=== PATIENT | female | born 1995 | race Two or more races ===

== ENCOUNTER 2017-03-07 08:13 | Emergency (ER) | payer SELFPAY ==
[2017-03-07 08:19] VITALS: BP 128/70
--- NOTE | 2017-03-07 08:34 | ER Document Report ---
HPI - HPI Patient complains to provider of: right side neck pain for 2 days Onset: Other - 2 days ago Pain Level: 1 Context: 21 yo female woke up with stiff, sore right sided neck pain. No radiculopathy, no known injury. Associated Symptoms: None Exacerbated by: Movement Relieved by: Denies Similar symptoms previously: No Recently seen / treated by doctor: No - ROS ROS below otherwise negative: Yes Systems Reviewed and Negative: Yes All other systems reviewed and negative - REPRODUCTIVE Reproductive: DENIES: : - DERM Skin Color: Normal Past Medical History - General Information source: Patient - Social History Smoking Status: Never Smoker Frequency of alcohol use: None Lives with: Parents Family History: Reviewed & Not Pertinent Patient has suicidal ideation: No Patient has homicidal ideation: No Renal/ Medical History: Denies: Hx Peritoneal Dialysis GI Medical History: Reports: Hx Gastroesophageal Reflux Disease Past Surgical History: Reports: Hx Bowel Surgery - polyp removed - Immunizations Hx Diphtheria, Pertussis, Tetanus Vaccination: Yes Vertical Provider Document - CONSTITUTIONAL Agree With Documented VS: Yes Exam Limitations: No Limitations - INFECTION CONTROL TRAVEL OUTSIDE OF THE [place] IN LAST 30 DAYS: No - HEENT HEENT: Normocephalic - NECK Neck: Supple - tender right trapeizus muscle. negative: Lymphadenopathy-Left, Lymphadenopathy-Right - RESPIRATORY Respiratory: Breath Sounds Normal, No Respiratory Distress O2 Sat by Pulse Oximetry: 98 - CARDIOVASCULAR Cardiovascular: Regular Rate, Regular Rhythm - MUSCULOSKELETAL/EXTREMETIES Notes: see above - NEURO Level of Consciousness: Awake, Alert Motor/Sensory: No Motor Deficit, No Sensory Deficit - DERM Integumentary: Warm, Dry, No Rash Course - Vital Signs Vital signs: Temp Pulse Resp BP Pulse Ox 98.1 F 73 18 128/70 H 98 03/07/17 08:16 03/07/17 08:16 03/07/17 08:16 03/07/17 08:16 03/07/17 08:16 Discharge - Discharge Clinical Impression: Trapezius muscle spasm Condition: Good Disposition: HOME, SELF-CARE Instructions: Acetaminophen, Anti-Inflammatory Medication ([facility]), Warm Packs ( [facility]), Muscle Relaxers ([facility]), Muscle Strain ([facility]), Torticollis ([facility]) Additional Instructions: warm compress range of motion extercises as dicussed to er if worse Please complete the patient satisfaction survey if you get one, and return it.. If you do not receive a survey, then you can go to the [facility] website, [email or web address] and place your comments about your very good care. Thank you very much. It was a pleasure being your medical provider today. Prescriptions: Ibuprofen [Motrin 800 mg Tablet] 800 mg PO Q8HP PRN #30 tablet PRN Reason: Cyclobenzaprine HCl [Flexeril 10 Mg Tablet] 10 mg PO TIDP PRN #20 tablet PRN Reason: Forms: Return to Work
[2017-03-07] MEDS ORDERED: IBUPROFEN 800 MG TABLET PO ONE (09:38)
[2017-03-07] MEDS ORDERED: ACETAMINOPHEN 325 MG TABLET PO ONE (09:38)
[2017-03-07] MEDS ORDERED: CYCLOBENZAPRINE HCL 10 MG TABLET PO ONE (10:09)
== END 2017-03-07 10:20 | disposition home or self-care (01) ==
LOC: ER 08:13
DX: M62.830 Muscle spasm of back (principal); M54.2 Cervicalgia
CPT/HCPCS: 99283

== ENCOUNTER 2018-01-29 01:08 | Emergency (ER) | payer SELFPAY ==
[2018-01-29 01:14] VITALS: BP 149/88
[2018-01-29 02:40] LABS: APPEARANCE,URINE SLIGHTLY-CLOUDY; BILIRUBIN,URINE NEGATIVE (NEGATIVE); COLOR,URINE YELLOW; GLUCOSE, URINE NEGATIVE (NEGATIVE); KETONES,URINE NEGATIVE (NEGATIVE); LEUKOCYTE ESTERASE,URINE NEGATIVE (NEGATIVE); NITRITE,URINE NEGATIVE (NEGATIVE); PROTEIN,URINE NEGATIVE (NEGATIVE); URINE SPECIFIC GRAVITY 1.017
[2018-01-29 04:36] LABS: T.VAGINALIS (WET MOUNT) NO TRICHOMONAS SEEN; YEAST (WET MOUNT) BUDDING YEAST SEEN
[2018-01-29 04:37] LABS: BACTERIA (WET MOUNT) 4+ BACTERIA SEEN; EPITHELIALS (WET MOUNT) 4+ EPITHELIALS SEEN; RBCS (WET MOUNT) RARE RBCS SEEN; WBCS (WET MOUNT) FEW WBCS SEEN
--- NOTE | 2018-01-29 05:14 | ER Document Report ---
ED General - General Chief Complaint: Vaginal Pain Stated Complaint: PAINFUL URINATION Time Seen by Provider: 01/29/18 01:56 Mode of Arrival: Ambulatory Information source: Patient Notes: 22-year-old female presents with complaints of vaginal discharge bleeding . Pt notes that she had [facility] with similar complaints was tested for chlamydia, gonrrhea, bv, trich syphilis and hiv. she was positive for yeast and bv and was treated with flagyl and diflucan. pt ntoes that now she is having further itching. TRAVEL OUTSIDE OF THE [place] IN LAST 30 DAYS: No - HPI Onset: Last week Onset/Duration: Persistent Quality of pain: Sharp Severity: Mild Pain Level: 1 Associated symptoms: Other Exacerbated by: Denies Relieved by: Denies Similar symptoms previously: Yes Recently seen / treated by doctor: Yes - Related Data Allergies/Adverse Reactions: No Known Drug Allergies Allergy (Verified 03/07/17 08:19) Past Medical History - Social History Smoking Status: Never Smoker Cigarette use (# per day): No Chew tobacco use (# tins/day): No Smoking Education Provided: No Frequency of alcohol use: None Drug Abuse: None Family History: Reviewed & Not Pertinent Patient has suicidal ideation: No Patient has homicidal ideation: No Renal/ Medical History: Denies: Hx Peritoneal Dialysis GI Medical History: Reports: Hx Gastroesophageal Reflux Disease Past Surgical History: Reports: Hx Bowel Surgery - polyp removed - Immunizations Hx Diphtheria, Pertussis, Tetanus Vaccination: Yes Review of Systems - Review of Systems Notes: REVIEW OF SYSTEMS: CONSTITUTIONAL : Denies fever, chills, or sweats. Denies recent illness. EENT: Denies eye, ear, throat, or mouth pain or symptoms. Denies nasal or sinus congestion or discharge. Denies throat, tongue, or mouth swelling or difficulty swallowing. CARDIOVASCULAR: Denies chest pain. Denies palpitations or racing or irregular heart beat. Denies ankle edema. RESPIRATORY: Denies cough, cold, or chest congestion. Denies shortness of breath, difficulty breathing, or wheezing. GASTROINTESTINAL: Denies abdominal pain or distention. Denies nausea, vomiting , or diarrhea. Denies blood in vomitus, stools, or per rectum. Denies black, tarry stools. Denies constipation. GENITOURINARY: Admits to burning on urination FEMALE GENITOURINARY: Admits to vaginal itching and discharge. MUSCULOSKELETAL: Denies back or neck pain or stiffness. Denies joint pain or swelling. SKIN: Denies rash, lesions or sores. HEMATOLOGIC : Denies easy bruising or bleeding. LYMPHATIC: Denies swollen, enlarged glands. NEUROLOGICAL: Denies confusion or altered mental status. Denies passing out or loss of consciousness. Denies dizziness or lightheadedness. Denies headache. Denies weakness or paralysis or loss of use of either side. Denies problems with gait or speech. Denies sensory loss, numbness, or tingling. Denies seizures. PSYCHIATRIC: Denies anxiety or stress. Denies depression, suicidal ideation, or homicidal ideation. ALL OTHER SYSTEMS REVIEWED AND NEGATIVE. PHYSICAL EXAMINATION: GENERAL: Well-appearing, well-nourished and in no acute distress. HEAD: Atraumatic, normocephalic. EYES: Pupils equal round and reactive to light, extraocular movements intact, conjunctiva are normal. ENT: Nares patent, oropharynx clear without exudates. Moist mucous membranes. NECK: Normal range of motion, supple without lymphadenopathy LUNGS: Breath sounds clear to auscultation bilaterally and equal. No wheezes rales or rhonchi. HEART: Regular rate and rhythm without murmurs ABDOMEN: Soft, nontender, nondistended abdomen. No guarding, no rebound. No masses appreciated. Female : Pelvic examination performed with nurse in room notes thick cottage cheese discharge internal and external examination no cervical motion tenderness there is some dried blood at the cervical loss Musculoskeletal: Normal range of motion, no pitting or edema. No cyanosis. NEUROLOGICAL: Cranial nerves grossly intact. Normal speech, normal gait. Normal sensory, motor exams PSYCH: Normal mood, normal affect. SKIN: Warm, Dry, normal turgor, no rashes or lesions noted. Dictation was performed using [email or web address] voice recognition software Physical Exam - Vital signs Vitals: Temp Pulse Resp BP Pulse Ox 98.7 F 93 20 149/88 H 97 01/29/18 01:13 01/29/18 01:13 01/29/18 01:13 01/29/18 01:13 01/29/18 01:13 Course - Re-evaluation Re-evalutation: 01/29/18 06:13 Patient appears to have bacterial vaginosis and yeast infection still, since she is being treated with Flagyl already I will not change the course however have increased the dosage of her Diflucan. She will be given follow-up with OB/ [facility] AL[facility] REPAIRER for further evaluation and care After performing a Medical Screening Examination, I estimate there is LOW risk for ACUTE APPENDICITIS, BOWEL OBSTRUCTION, ACUTE CHOLECYSTITIS, PERFORATED DIVERTICULITIS, INCARCERATED HERNIA, PANCREATITIS, PELVIC INFLAMMATORY DISEASE, PERFORATED ULCER, ECTOPIC , or TUBO-OVARIAN ABSCESS, thus I consider the discharge disposition reasonable. Also, there is no evidence or peritonitis , sepsis, or toxicity. I have reevaluated this patient multiple times and no significant life threatening changes are noted. The patient and I have discussed the diagnosis and risks, and we agree with discharging home with close follow-up with the understanding that symptoms and presentations can change. We also discussed returning to the Emergency Department immediately if new or worsening symptoms occur. We have discussed the symptoms which are most concerning (e.g., bloody stool, fever, changing or worsening pain, vomiting) that necessitate immediate return. - Vital Signs Vital signs: Temp Pulse Resp BP Pulse Ox 98.7 F 93 20 149/88 H 97 01/29/18 01:13 01/29/18 01:13 01/29/18 01:13 01/29/18 01:13 01/29/18 01:13 - Laboratory Laboratory results interpreted by me: 01/29/18 02:15 Urine Urobilinogen 2.0 H Discharge - Discharge Clinical Impression: Vaginal yeast infection, Dysuria Condition: Stable Disposition: HOME, SELF-CARE Instructions: Vaginal Yeast Infection ([facility]) Prescriptions: Fluconazole [Diflucan] 150 mg PO DAILY #7 tablet Forms: Return to Work Referrals: [facility] [Provider Group] - Follow up as needed
[2018-01-29 05:59] LABS: CHLAM PCR NOT DETECTED (NOT DETECT); GON PCR NOT DETECTED (NOT DETECT)
== END 2018-01-29 05:21 | disposition home or self-care (01) ==
LOC: ER 01:08
DX: B37.3 Candidiasis of vulva and vagina (principal); R30.0 Dysuria
CPT/HCPCS: 81001; 81025; 87210; 87491; 87591; 99283

== ENCOUNTER 2018-04-04 02:48 | Emergency (ER) | payer SELFPAY ==
[2018-04-04] MEDS ORDERED: TETRACAINE HCL 0.5% OPH SOLN 2 ML OD ONE (03:56)
--- NOTE | 2018-04-04 03:58 | ER Document Report ---
ED General - General Chief Complaint: Eye Pain Stated Complaint: EYE INJURY Time Seen by Provider: 04/04/18 03:44 Notes: Patient is a 22-year-old female presents with complaint of redness and pain to the eye. She thinks actually scratched her eye when rubbing it. Since then has become more red and more painful and she has noticed little bit of yellowish drainage from the eye. Slight blurred vision. No other complaints or injuries. She does not wear contacts. She only wears glasses. TRAVEL OUTSIDE OF THE [place] IN LAST 30 DAYS: No - Related Data Allergies/Adverse Reactions: No Known Drug Allergies Allergy (Verified 03/07/17 08:19) Past Medical History - Social History Smoking Status: Unknown if Ever Smoked Frequency of alcohol use: None Drug Abuse: None Family History: Reviewed & Not Pertinent Patient has suicidal ideation: No Patient has homicidal ideation: No Renal/ Medical History: Denies: Hx Peritoneal Dialysis GI Medical History: Reports: Hx Gastroesophageal Reflux Disease Past Surgical History: Reports: Hx Bowel Surgery - polyp removed - Immunizations Hx Diphtheria, Pertussis, Tetanus Vaccination: Yes Review of Systems - Review of Systems Notes: My Normal Review Basic REVIEW OF SYSTEMS: CONSTITUTIONAL : Denies fever, chills, or sweats. Denies recent illness. EENT: Denies ear, throat, or mouth pain or symptoms. Denies nasal or sinus congestion. Left eye pain. SKIN: Denies rash or skin lesions. NEUROLOGICAL: Denies altered mental status or loss of consciousness. Denies headache. ALL OTHER SYSTEMS REVIEWED AND NEGATIVE. Physical Exam - Vital signs Vitals: Temp Pulse Resp BP Pulse Ox 98.1 F 94 16 149/93 H 99 04/04/18 02:52 04/04/18 02:52 04/04/18 02:52 04/04/18 02:52 04/04/18 02:52 - Notes Notes: General Appearance: Well nourished, alert, cooperative, no acute distress, no obvious discomfort. Well-appearing Vitals: reviewed, See vital signs table. Head: no swelling or tenderness to the head Eyes: PERRL, EOMI, right conjunctive is clear. Left conjunctiva has some erythema and irritation. Eyes watery. Patient has a small corneal abrasion at the 5 o'clock position forcing staining. This is over the conjunctiva. No ulceration. No New sign. Mouth: No decreasd moisture Throat: No tonsillar inflammation, No airway obstruction, No lymphadenopathy Neuro: speech clear, oriented x 3, normal affect, responds appropriately to questions. Course - Re-evaluation Re-evalutation: 04/04/18 07:07 Patient appears to have a small corneal abrasion she appears to have some associated conjunctivitis. She does not have significant swelling to the eye. She does not have a hypopyon. She has good extraocular motion without pain. Will place her on besifloxacin eyedrops. Patient to up with eye doctor on Saturday. She is to return to ER if she has worsening redness, swelling of her eye, or she feels that is worse in any way. Patient agrees with plan will be discharged home. Dictation of this chart was performed using voice recognition software; therefore, there may be some unintended grammatical errors. - Vital Signs Vital signs: Temp Pulse Resp BP Pulse Ox 98.6 F 83 16 138/82 H 98 04/04/18 04:28 04/04/18 04:28 04/04/18 04:28 04/04/18 04:28 04/04/18 04:28 Discharge - Discharge Clinical Impression: Corneal abrasion Qualifiers: Encounter type: initial encounter Laterality: left Qualified Code(s): S05.02XA - Injury of conjunctiva and corneal abrasion without foreign body, left eye, initial encounter Disposition: HOME, SELF-CARE Additional Instructions: Please try not to rub or touch your eye. You can tape a small piece of gauze over your closed eyelid for when you sleep at night so you do not accidentally rub your eye at night. We have given you an antibiotic eyedrop called Besifloxacin. Please apply 1 drop in your left eye 3 times a day for the next 5 -7 days. Please follow-up with drag out worker, Dr. Newell, on Saturday. Return to ER if you have worsening redness, changes in your vision, or increasing pain in your eye. Forms: Return to Work Referrals: ASH NEWELL MD [ACTIVE STAFF] - 04/07/18
[2018-04-04] MEDS ORDERED: BESIFLOXACIN HCL 0.6% OPH SUSP 5 ML BOTTLE OS ONE (04:07)
[2018-04-04 04:29] VITALS: BP 138/82
== END 2018-04-04 04:29 | disposition home or self-care (01) ==
LOC: ER 02:48
DX: S05.02XA Injury of conjunctiva and corneal abrasion without foreign body, left eye, initial encounter (principal)
CPT/HCPCS: 99283

== ENCOUNTER 2019-02-12 15:36 | Emergency (ER) | payer OTHER, BC ==
[2019-02-12] MEDS ORDERED: IBUPROFEN 600 MG TABLET PO ONE (18:43)
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
[2019-02-12 20:01] VITALS: BP 124/79
== END 2019-02-12 20:00 | disposition home or self-care (01) ==
LOC: ER 15:36
DX: S40.022A Contusion of left upper arm, initial encounter (principal); M25.512 Pain in left shoulder; M79.602 Pain in left arm; M54.2 Cervicalgia; V87.7XXA Person injured in collision between other specified motor vehicles (traffic), initial encounter
CPT/HCPCS: 99283

== ENCOUNTER → 2020-01-05 | Outpatient (CLI) | payer BC ==
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
== END ==
LOC: RAD 10:40
PROVIDERS: ATTEND Ophthalmology
DX: H53.8 Other visual disturbances (principal); H47.11 Papilledema associated with increased intracranial pressure; R51 Headache
CPT/HCPCS: 70553; A9576

== ENCOUNTER 2020-01-07 20:15 | Emergency (ER) | payer BC ==
[2020-01-07] MEDS ORDERED: DIPHENHYDRAMINE HCL 50 MG/ML VIAL IV ONE ×2 (20:53→23:20)
[2020-01-07] MEDS ORDERED: KETOROLAC TROMETHAMINE INJ/PF 30 MG/1 ML SDV IV ONE (20:53)
[2020-01-07] MEDS ORDERED: METOCLOPRAMIDE HCL INJ/PF 10 MG/2 ML SDV IV ONE (20:53)
[2020-01-07] MEDS ORDERED: NORMAL SALINE 1000 ML 1,000 ML IV ONE (20:53)
--- NOTE | 2020-01-07 20:55 | ER Document Report ---
ED Medical Screen (RME) - General Stated Complaint: HEADACHE Primary Care Provider: ISACC PRASAD DO [Primary Care Provider] - Follow up as needed Notes: Patient is a 24-year-old female with a recent diagnosis of idiopathic intracranial hypertension/pseudotumor cerebri who had a lumbar puncture yesterday with 20 cc of spinal fluid drained with an elevated opening pressure who was started on Diamox yesterday who presents with complaint of severe headache. She states she awoke this morning at 10 AM and had a very severe headache. She states that the frontal area and occipital areas of the head. She states she is taken multiple [id number] medications including 3 g of Tylenol a day without any significant improvement. She states is associated with photophobia. Denies any nausea or vomiting. Also admits to some soreness in the back of the neck as well as at the site of lumbar puncture. This was done at [facility]. Denies a history of headaches. Denies any changes with positioning. I have treated and performed a rapid initial assessment of this patient. A comprehensive ED assessment and evaluation of the patient, analysis of test results and completion of medical decision making process will be conducted by additional ED providers. PHYSICAL EXAMINATION: GENERAL: Well-appearing, well-nourished and in no acute distress. A&Ox4. Answers questions appropriately. TRAVEL OUTSIDE OF THE [place] IN LAST 30 DAYS: No - Related Data Allergies/Adverse Reactions: No Known Drug Allergies Allergy (Verified 02/12/19 15:36) Past Medical History Renal/ Medical History: Denies: Hx Peritoneal Dialysis GI Medical History: Reports: Hx Gastroesophageal Reflux Disease Past Surgical History: Reports: Hx Bowel Surgery - polyp removed - Immunizations Hx Diphtheria, Pertussis, Tetanus Vaccination: Yes Physical Exam - Vital signs Vitals: Temp Pulse Resp BP Pulse Ox 98.6 F 78 16 129/93 H 99 01/07/20 20:20 01/07/20 20:20 01/07/20 20:20 01/07/20 20:20 01/07/20 20:20 Course - Vital Signs Vital signs: Temp Pulse Resp BP Pulse Ox 98.6 F 78 16 129/93 H 99 01/07/20 20:20 01/07/20 20:20 01/07/20 20:20 01/07/20 20:20 01/07/20 20:20 Doctor's Discharge - Discharge Referrals: ISACC PRASAD, [Primary Care Provider] - Follow up as needed
--- NOTE | 2020-01-07 21:59 | RADIOLOGY REPORT (SQ) ---
EXAM DESCRIPTION: CT HEAD WITHOUT IV CONTRAST COMPLETED DATE/TME: 01/07/2020 9:01 PM CLINICAL HISTORY: severe MCKEON COMPARISON: None Available. TECHNIQUE: Contiguous axial images of the brain were obtained without the administration of intravenous contrast. This exam was performed according to our departmental dose-optimization program, which includes automated exposure control, adjustment of the mA and/or kV according to patient size and/or use of iterative reconstruction technique. FINDINGS: There is no acute intracranial hemorrhage or mass effect. Ventricular system is within normal limits. There is adequate wetzel-white matter differentiation. There is no skull fracture. Patchy opacification of the sphenoid sinus compatible with acute sinusitis changes. IMPRESSION: No acute intracranial hemorrhage. Acute sinusitis changes at the level of the right sphenoid sinus.
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
[2020-01-07] MEDS ORDERED: PROCHLORPERAZINE EDISYLATE INJ 10 MG/2 ML VIAL IV ONE (22:20)
[2020-01-07] MEDS ORDERED: HYDROMORPHONE HCL INJ/PF 2 MG/ML AMPULE IV ONE (22:20)
[2020-01-07] MEDS ORDERED: DEXAMETHASONE SOD PHOS INJ 10 MG/1 ML VIAL IV ONE (22:21)
[2020-01-07] MEDS ORDERED: HALOPERIDOL LACTATE INJ 5 MG/1 ML VIAL IV ONE (22:41)
[2020-01-07] MEDS ORDERED: DIPHENHYDRAMINE HCL 50 MG/ML VIAL ONE (23:15)
[2020-01-08] MEDS ORDERED: HYDROCODONE/ACETAMINOPHEN 5-325 MG (6 TAB/ER DISP) PO PRN (00:07)
[2020-01-08 00:53] VITALS: BP 122/76
== END 2020-01-08 00:46 | disposition home or self-care (01) ==
LOC: ER 20:15
DX: R51 Headache (principal); H65.02 Acute serous otitis media, left ear; H53.149 Visual discomfort, unspecified; H92.02 Otalgia, left ear; H93.19 Tinnitus, unspecified ear; M54.5 Low back pain; R53.1 Weakness; R53.81 Other malaise; G93.2 Benign intracranial hypertension; Z98.890 Other specified postprocedural states; F17.210 Nicotine dependence, cigarettes, uncomplicated
CPT/HCPCS: 99285; 96361; 96374; 96375; 70450; J1200; J1630; J1170; J7030; J1100

== ENCOUNTER 2020-04-04 08:24 | Emergency (ER) | payer BC ==
[2020-04-04 09:15] LABS: APPEARANCE,URINE CLEAR; BILIRUBIN,URINE NEGATIVE (NEGATIVE); COLOR,URINE YELLOW; GLUCOSE, URINE NEGATIVE (NEGATIVE); KETONES,URINE NEGATIVE (NEGATIVE); LEUKOCYTE ESTERASE,URINE NEGATIVE (NEGATIVE); NITRITE,URINE NEGATIVE (NEGATIVE); PROTEIN,URINE NEGATIVE (NEGATIVE); URINE SPECIFIC GRAVITY 1.019; UROBILINOGEN,URINE NEGATIVE mg/dL (<2.0)
[2020-04-04] MEDS ORDERED: ACETAMINOPHEN 325 MG TABLET PO ONE (12:00)
--- NOTE | 2020-04-04 12:01 | ER Document Report ---
ED General - General Chief Complaint: Abdominal Cramping Stated Complaint: ABDOMINAL CRAMPING Time Seen by Provider: 04/04/20 08:59 Primary Care Provider: ESTEVAN ROSS PA [Primary Care Provider] - Follow up as needed Mode of Arrival: Ambulatory Information source: Patient TRAVEL OUTSIDE OF THE [place] IN LAST 30 DAYS: No - HPI Notes: Patient presents with 1 week of lower abdominal pelvic pressure. Nothing makes it better or worse. No significant radiation of this pressure. She states that it is moderate in intensity. She has had no vaginal discharge or bleeding. No vomiting or diarrhea. Patient states she has had no trauma. She states that she is approximately 3 days late on this menstrual cycle. She had a normal menstrual cycle last month. Patient states that she has had 1 previous . Patient denies any fevers. The pain does radiate across the lower part of her abdomen. It has been relatively constant - Related Data Allergies/Adverse Reactions: No Known Drug Allergies Allergy (Verified 02/12/19 15:36) Past Medical History - General Information source: Patient - Social History Smoking Status: Current Every Day Smoker Frequency of alcohol use: Occasional Drug Abuse: None Family History: Reviewed & Not Pertinent Renal/ Medical History: Denies: Hx Peritoneal Dialysis GI Medical History: Reports: Hx Gastroesophageal Reflux Disease Past Surgical History: Reports: Hx Bowel Surgery - polyp removed - Immunizations Hx Diphtheria, Pertussis, Tetanus Vaccination: Yes Review of Systems - Review of Systems Constitutional: denies: Chills, Fever Cardiovascular: denies: Chest pain, Palpitations Respiratory: denies: Cough, Short of breath -: Yes All other systems reviewed and negative Physical Exam - Vital signs Vitals: Temp Pulse Resp BP Pulse Ox 99.1 F 105 H 18 141/91 H 98 04/04/20 08:27 04/04/20 08:27 04/04/20 08:27 04/04/20 08:27 04/04/20 08:27 Interpretation: Normal - General General appearance: Appears well, Alert - HEENT Head: Normocephalic, Atraumatic Eyes: Normal Pupils: PERRL - Respiratory Respiratory status: No respiratory distress Chest status: Nontender Breath sounds: Normal Chest palpation: Normal - Cardiovascular Rhythm: Regular Heart sounds: Normal auscultation Murmur: No - Abdominal Inspection: Normal Distension: No distension Bowel sounds: Normal Tenderness: Tender - Very mild tenderness to palpation in the bilateral lower quadrants of the abdomen. There is no surgical signs at this time. Organomegaly: No organomegaly - Back Back: Normal, Nontender - Extremities General upper extremity: Normal inspection, Nontender, Normal color, Normal ROM, Normal temperature General lower extremity: Normal inspection, Nontender, Normal color, Normal ROM, Normal temperature, Normal weight bearing. No: Patt's sign - Neurological Neuro grossly intact: Yes Cognition: Normal Orientation: AAOx4 Maycol Coma Scale Eye Opening: Spontaneous Maycol Coma Scale Verbal: Oriented Jefferson Coma Scale Motor: Obeys Commands Jefferson Coma Scale Total: 15 Speech: Normal Motor strength normal: LUE, RUE, LLE, RLE Sensory: Normal - Psychological Associated symptoms: Normal affect, Normal mood - Skin Skin Temperature: Warm Skin Moisture: Dry Skin Color: Normal Course - Re-evaluation Re-evalutation: 04/04/20 11:58 Patient presents with bilateral lower abdominal pelvic pain. She has had no vaginal bleeding. Her beta is positive at 390. Ultrasound at this time shows no evidence of intrauterine but also shows no evidence of ectopic. I have called and discussed the case with Dr. Treadwell who will see the patient in the office in 2 days. Initially patient was tachycardic in triage. However heart rate now is 82. 04/04/20 12:00 - Vital Signs Vital signs: Temp Pulse Resp BP Pulse Ox 99.1 F 105 H 18 141/91 H 98 04/04/20 08:27 04/04/20 08:27 04/04/20 08:27 04/04/20 08:27 04/04/20 08:27 - Laboratory Laboratory results interpreted by me: 04/04/20 04/04/20 08:55 10:45 Beta HCG, Quant 390.86 H Urine HCG, Qual POSITIVE H - Diagnostic Test Radiology reviewed: Image reviewed, Reports reviewed Discharge - Discharge Clinical Impression: Positive test, Pelvic pain Condition: Stable Disposition: HOME, SELF-CARE Instructions: Pelvic Pain ([facility]), Ectopic Precaution ([facility]) Additional Instructions: Please call Dr. Treadwell as soon as possible to arrange follow-up in 2 days. Forms: Return to Work Referrals: TANYA TREADWELL MD [ACTIVE STAFF] - 04/06/20
--- NOTE | 2020-04-04 12:06 | RADIOLOGY REPORT (SQ) ---
EXAM DESCRIPTION: U/S OB TRANSVAGINAL W/O DOP IMAGES COMPLETED DATE/TIME: 04/04/2020 10:32 am REASON FOR STUDY: preg/pain COMPARISON: None. TECHNIQUE: Transvaginal static and realtime grayscale images acquired of the pelvis. Additional sujata cted spectral and color Doppler images recorded. All images stored on PACs. CLINICAL AGE: 4 weeks 5 days BHCG: Not available at time of dictation. LIMITATIONS: None. FINDINGS: UTERUS: No visualized intrauterine . Small hypoattenuating lesion in the anterio r aspect of the uterus possibly small fibroid. RIGHT ADNEXA: Normal ovary with normal vascular flow. 1.8 cm cystic structure in the left ovary eith er small cyst or dominant follicle. No adnexal free fluid. No adnexal masses. LEFT ADNEXA: Normal ovary with normal vascular flow. No adnexal free fluid. No adnexal masses. FREE FLUID: None. OTHER: No other significant finding. IMPRESSION: NO VISUALIZED INTRA- OR EXTRAUTERINE . bHCG LEVEL TOO LOW TO EXPECT VISUALIZATION OF . ECTOPIC CANNOT BE EXCLUDED. FOLLOW-UP ULTRASOUND AND SERIAL BHCG LEVELS STRONGLY RECOMMENDED TO ACCURATELY ASSESS STATU S. TECHNICAL DOCUMENTATION: JOB ID: [id number] 2010 [employer]- All Rights Reserved Reading location - IP/workstation name: [email or web address]
[2020-04-04 12:14] VITALS: BP 125/70
== END 2020-04-04 12:13 | disposition home or self-care (01) ==
LOC: ER 08:24
DX: R10.2 Pelvic and perineal pain (principal); R10.813 Right lower quadrant abdominal tenderness; R10.814 Left lower quadrant abdominal tenderness; Z32.01 Encounter for pregnancy test, result positive; F17.200 Nicotine dependence, unspecified, uncomplicated
CPT/HCPCS: 36415; 76817; 81001; 81025; 84702; 99284

== ENCOUNTER 2020-05-29 09:00 | Emergency (ER) | payer BC, MEDICAID ==
--- NOTE | 2020-05-29 10:55 | ER Document Report ---
ED General - General Chief Complaint: Vaginal Bleeding Stated Complaint: VAGINAL BLEEDING Time Seen by Provider: 05/29/20 10:00 Primary Care Provider: ESTEVAN ROSS PA [Primary Care Provider] - Follow up as needed TRAVEL OUTSIDE OF THE [place] IN LAST 30 DAYS: No - HPI Notes: Chief complaint: Vaginal bleeding History of present illness: 24-year-old female primigravida at approximately 12 weeks EGA by dates has been seen by her private [facility] several times recently for mild vaginal spotting and has been given vaginal bleeding precautions. She was told in the office that an ultrasound showed evidence of a mild subchorionic hemorrhage about 2 weeks ago ultrasound study was apparently repeated this past week in the office and showed no abnormality. Starting last night she has had some recurrence of vaginal spotting which she says is similar now to menstrual period. Few small clots passed. No tissue. Mild abdominal "soreness" without contractions. Slight dull pain right lower back. No fever, chills or dysuria. Patient is a cigarette smoker. Denies consumption of alcohol use of cannabis or other drugs. Only current medication is Zoloft when she is been taking for the last 3 to 4 weeks. No known allergies. Past medical history is remarkable for a history of benign intracranial hypertension. - Related Data Allergies/Adverse Reactions: No Known Drug Allergies Allergy (Verified 05/29/20 09:26) Past Medical History - General Information source: Patient, Relative - Social History Smoking Status: Current Every Day Smoker Frequency of alcohol use: None Drug Abuse: None Occupation: Patient works at [employer] Family History: Reviewed & Not Pertinent Patient has homicidal ideation: No - Past Medical History Cardiac Medical History: Reports: None Pulmonary Medical History: Reports: None Neurological Medical History: Reports: Other - History of benign intracranial hypertension Endocrine Medical History: Reports: None Renal/ Medical History: Denies: Hx Peritoneal Dialysis GI Medical History: Reports: Hx Gastroesophageal Reflux Disease Psychiatric Medical History: Reports: Hx Depression Past Surgical History: Reports: Hx Bowel Surgery - polyp removed - Immunizations Hx Diphtheria, Pertussis, Tetanus Vaccination: Yes Review of Systems - Review of Systems Notes: Constitutional: Negative for fever. HENT: Negative for sore throat. Eyes: Negative for visual changes. Cardiovascular: Negative for chest pain. Respiratory: Negative for shortness of breath. Gastrointestinal: Negative for abdominal pain, vomiting or diarrhea. Genitourinary: As per HPI. Musculoskeletal: As per HPI. Skin: Negative for rash. Neurological: Negative for headaches, weakness or numbness. 10 point ROS negative except as marked above and in HPI. Physical Exam - Vital signs Vitals: Temp Pulse Resp BP Pulse Ox 98.5 F 110 H 18 157/87 H 97 05/29/20 09:04 05/29/20 09:04 05/29/20 09:04 05/29/20 09:04 05/29/20 09:04 - Notes Notes: GENERAL: Well-developed well-nourished female approximately stated age appearing tearful. SKIN: Good turgor no rashes. HEAD: Normocephalic atraumatic. EYES: PERRLA. EOMI. Conjunctivae and sclerae clear. EARS: CANALS AND TMS CLEAR. NOSE: CLEAR. MOUTH: Moist mucosa. Good dentition. No stridor or edema. No drooling. NECK: Supple. No masses or thyromegaly. No adenopathy. Carotids 2+ without br uits. No JVD. BACK: Symmetrical without tenderness. CHEST: Respirations unlabored. Breath sounds clear and symmetrical. HEART: Regular rhythm. No murmur gallop or rub. ABDOMEN: Soft nontender without masses, organomegaly or rebound. Bowel sounds normally active. No bruits. PELVIC: Patient has some small 1 cm cystic lesions of the labia majora bilaterally. Few small blood clots in the vaginal vault. Cervical office is closed. No tissue present. Uterus is enlarged consistent with dates and soft. Mild generalized tenderness over the uterus. No obvious contractions. No adnexal masses. EXTREMITIES: No edema. No calf tenderness. Cap refill less than 1.5 seconds. Dorsalis pedis and posterior tibial pulses 3+ and symmetrical. NEUROLOGICAL: GCS 15. Alert and oriented x3. Fluent speech. Cranial nerves II through XII intact. Sensorimotor and cerebellar normal. Normal tone. PSYCHIATRIC: Tearful anxious affect. Course - Re-evaluation Re-evalutation: 05/29/20 12:40 Patient is Rh+. Her hemoglobin is normal. Ultrasound normal IUP per radiologist. Patient is reassured regarding current findings and recommend continued miscarriage precautions. No intercourse. No use of tampons or intravaginal medications. Light activity at home with work note provided next 3 days. Return here as needed for new or worsening symptoms. She is to follow-up with her [facility] physician within the next 72 hours. Return here as needed for new or worsening symptoms: Bleeding is much heavier than a period or passage of tissue Pain that is worsening or unimproved Uncontrolled vomiting High fever or shaking chills Overall worsening 05/29/20 12:42 - Vital Signs Vital signs: Temp Pulse Resp BP Pulse Ox 98.5 F 110 H 18 157/87 H 97 05/29/20 09:04 05/29/20 09:04 05/29/20 09:04 05/29/20 09:04 05/29/20 09:04 - Laboratory Result Diagrams: 05/29/20 11:00 Laboratory results interpreted by me: 05/29/20 05/29/20 11:00 11:00 WBC 11.2 H Absolute Neuts (auto) 8.6 H Beta HCG, Quant 58114.00 H - Diagnostic Test Radiology reviewed: Reports reviewed - Pelvic ultrasound per radiologist: Normal IUP 12 weeks 2 days EGA Discharge - Discharge Clinical Impression: Threatened miscarriage in early , Vaginal bleeding Condition: Stable Disposition: HOME, SELF-CARE Instructions: Threatened Miscarriage ([facility]) Forms: Return to Work Referrals: ESTEVAN ROSS PA [Primary Care Provider] - Follow up as needed
[2020-05-29 11:03] LABS: BACTERIA (WET MOUNT) 3+ BACTERIA SEEN; EPITHELIALS (WET MOUNT) 3+ EPITHELIALS SEEN; RBCS (WET MOUNT) 3+ RBCS SEEN; T.VAGINALIS (WET MOUNT) NO TRICHOMONAS SEEN; WBCS (WET MOUNT) 1+ WBCS SEEN; YEAST (WET MOUNT) NO YEAST SEEN
[2020-05-29 11:09] LABS: ABSOLUTE BASOPHILS # (AUTO) 0.1 10^3/uL (0.0-0.2); ABSOLUTE EOSINOPHILS # (AUTO) 0.2 10^3/uL (0.0-0.6); ABSOLUTE MONOCYTES (AUTO) 0.3 10^3/uL (0.1-1.4); ABSOLUTE NEUT (AUTO) 8.6 10^3/uL (1.7-8.2); BASOPHILS % (AUTO) 0.6 % (0-2); EOSINOPHILS % (AUTO) 1.9 % (0-6); HEMOGLOBIN 14.7 g/dL (12.0-15.5); LYMPHOCYTES % (AUTO) 17.7 % (13-45); MEAN CORPUSCULAR HEMOGLOBIN 32.3 pg (27.0-33.4); MEAN CORPUSCULAR HGB CONC 35.7 g/dL (32.0-36.0); MEAN CORPUSCULAR VOLUME 90 fl (80-97); PLATELET COUNT 253 10^3/uL (150-450); RED BLOOD COUNT 4.54 10^6/uL (3.72-5.28); RED CELL DISTRIBUTION WIDTH 13.6 % (11.5-14.0); SEGMENTED NEUTROPHILS % (AUTO) 76.8 % (42-78); TOTAL CELLS COUNTED % (AUTO) 100 %; WHITE BLOOD COUNT 11.2 10^3/uL (4.0-10.5)
--- NOTE | 2020-05-29 11:54 | RADIOLOGY REPORT (SQ) ---
EXAM DESCRIPTION: U/S [id number] TRNABD 1GES W/ODOP IMAGES COMPLETED DATE/TIME: 05/29/2020 11:21 am REASON FOR STUDY: vag bleed 12 wks EGA COMPARISON: 04/04/2020 TECHNIQUE: Transabdominal static and realtime grayscale images acquired of the pelvis. Additional se lected spectral and color Doppler images recorded. All images stored on PACs. bHCG: Pending. CLINICAL DATES: 12 week 4 day LIMITATIONS: None. FINDINGS: FETUS: Single Living intrauterine . ULTRASOUND EGA: 12 week 2 day ULTRASOUND BEVERLY: 12/09/2020 EFW: Not applicable less than 20 weeks. CRL: 5.7 cm FHR: 153 beats per minute. SURVEY: Too early to assess. AMNIOTIC FLUID: Adequate amount. PLACENTA: No hemorrhage appreciated. UTERUS: No masses. No anomalies. CERVICAL LENGTH: 2.9 cm. Closed. RIGHT ADNEXA: Normal ovary with normal vascular flow. No adnexal free fluid. No adnexal masses. LEFT ADNEXA: Normal ovary with normal vascular flow. No adnexal free fluid. No adnexal masses. FREE FLUID: None. OTHER: No other significant finding. IMPRESSION: LIVING INTRAUTERINE . EGA 12 week 2 day Trimester of : First trimester - 0 to 13 weeks. TECHNICAL DOCUMENTATION: JOB ID: [id number] 2010 [employer]- All Rights Reserved rev-02/07 Reading location - IP/workstation name: [email or web address]
[2020-05-29 12:40] LABS: CHLAM PCR NOT DETECTED (NOT DETECT)
[2020-05-29 12:53] VITALS: BP 118/66
== END 2020-05-29 12:52 | disposition home or self-care (01) ==
LOC: ER 09:00
DX: O20.0 Threatened abortion (principal); O99.89 Other specified diseases and conditions complicating pregnancy, childbirth and the puerperium; M54.5 Low back pain; O34.80 Maternal care for other abnormalities of pelvic organs, unspecified trimester; N94.89 Other specified conditions associated with female genital organs and menstrual cycle; O99.330 Smoking (tobacco) complicating pregnancy, unspecified trimester; F17.210 Nicotine dependence, cigarettes, uncomplicated; O99.340 Other mental disorders complicating pregnancy, unspecified trimester; F32.9 Major depressive disorder, single episode, unspecified; Z79.899 Other long term (current) drug therapy; Z3A.00 Weeks of gestation of pregnancy not specified
CPT/HCPCS: 36415; 76801; 84702; 85025; 86900; 86901; 87210; 87491; 87591; 99284

== ENCOUNTER 2020-09-07 12:07 | Outpatient (CLI) | payer BC, MEDICAID ==
[2020-09-07 12:58] LABS: APPEARANCE,URINE CLOUDY; BILIRUBIN,URINE NEGATIVE (NEGATIVE); COLOR,URINE YELLOW; GLUCOSE, URINE NEGATIVE (NEGATIVE); KETONES,URINE NEGATIVE (NEGATIVE); LEUKOCYTE ESTERASE,URINE MODERATE (NEGATIVE); NITRITE,URINE NEGATIVE (NEGATIVE); PROTEIN,URINE NEGATIVE (NEGATIVE); URINE SPECIFIC GRAVITY 1.017; UROBILINOGEN,URINE NEGATIVE mg/dL (<2.0)
[2020-09-07 13:18] LABS: URINE AMPHETAMINES SCREEN NEGATIVE; URINE BARBITURATES SCREEN NEGATIVE; URINE BENZODIAZEPINES SCREEN NEGATIVE; URINE COCAINE SCREEN NEGATIVE; URINE METHADONE SCREEN NEGATIVE; URINE PHENCYCLIDINE SCREEN NEGATIVE
[2020-09-07 13:20] LABS: URINE MARIJUANA (THC) SCREEN UNCONFIRMED POSITIVE
[2020-09-07 13:37] LABS: ABSOLUTE BASOPHILS # (AUTO) 0.1 10^3/uL (0.0-0.2); ABSOLUTE EOSINOPHILS # (AUTO) 0.1 10^3/uL (0.0-0.6); ABSOLUTE LYMPHOCYTES (AUTO) 2.2 10^3/uL (0.5-4.7); ABSOLUTE MONOCYTES (AUTO) 0.5 10^3/uL (0.1-1.4); ABSOLUTE NEUT (AUTO) 10.6 10^3/uL (1.7-8.2); BASOPHILS % (AUTO) 0.7 % (0-2); EOSINOPHILS % (AUTO) 1.1 % (0-6); HEMATOCRIT 35.3 % (36.0-47.0); HEMOGLOBIN 12.2 g/dL (12.0-15.5); MEAN CORPUSCULAR HEMOGLOBIN 31.1 pg (27.0-33.4); MEAN CORPUSCULAR HGB CONC 34.4 g/dL (32.0-36.0); MEAN CORPUSCULAR VOLUME 90 fl (80-97); MONOCYTES % (AUTO) 3.5 % (3-13); PLATELET COUNT 214 10^3/uL (150-450); RED BLOOD COUNT 3.92 10^6/uL (3.72-5.28); RED CELL DISTRIBUTION WIDTH 14.1 % (11.5-14.0); SEGMENTED NEUTROPHILS % (AUTO) 78.7 % (42-78); TOTAL CELLS COUNTED % (AUTO) 100 %; WHITE BLOOD COUNT 13.5 10^3/uL (4.0-10.5)
--- NOTE | 2020-09-07 14:55 | RADIOLOGY REPORT (SQ) ---
EXAM DESCRIPTION: U/S OB LIMITED IMAGES COMPLETED DATE/TIME: 09/07/2020 2:15 pm REASON FOR STUDY: shortened cervical length COMPARISON: None. TECHNIQUE: Limited transabdominal grayscale ultrasound for evaluation of specific requested obstetri rakesh parameters. LIMITATIONS: None. FINDINGS: EGA: 27 weeks 0 days. CERVICAL LENGTH: 3.4 cm. Closed. RAINE: 18.2 cm. LVP: 10.1 x 5.4 cm. FHR: 127 beats per minute. PRESENTATION: Vertex. PLACENTA: Posterior. ANATOMY: Not assessed. OTHER: No other findings. IMPRESSION: LIMITED OBSTETRICAL ULTRASOUND WITH MEASURED PARAMETERS DELINEATED ABOVE. Trimester of : Second trimester - 13 weeks 1 day to 27 weeks 6 days. TECHNICAL DOCUMENTATION: JOB ID: [id number] 2010 [employer]- All Rights Reserved Reading location - IP/workstation name: [email or web address]
== END 2020-09-07 15:07 | disposition home or self-care (01) ==
LOC: LC 12:07
PROVIDERS: ATTEND Obstetrics & Gynecology
DX: O99.612 Diseases of the digestive system complicating pregnancy, second trimester (principal); K52.9 Noninfective gastroenteritis and colitis, unspecified; O26.872 Cervical shortening, second trimester; Z3A.27 27 weeks gestation of pregnancy
CPT/HCPCS: 59899; 36415; 85025; 81001; 80307; 76815; G0480 ×2; 80349; 94760